=== PATIENT | male | born 1930 | race Caucasian/White ===

== ENCOUNTER → 2018-07-29 | Outpatient (REF) | payer MEDICARE | LOC: M LAB REF 13:37 | DX: C43.59 Malignant melanoma of other part of trunk (principal) | CPT/HCPCS: 88305 ==

== ENCOUNTER → 2018-11-11 | Outpatient (REF) | payer MEDICARE | LOC: M LAB REF 15:48 | PROVIDERS: ATTEND Podiatrist | DX: L97.522 Non-pressure chronic ulcer of other part of left foot with fat layer exposed (principal) ==

== ENCOUNTER → 2019-07-01 | Outpatient (REF) | payer MEDICARE | LOC: M LAB REF 15:54 | PROVIDERS: ATTEND Podiatrist | DX: L03.126 Acute lymphangitis of left lower limb (principal); M79.672 Pain in left foot ==